=== PATIENT | male | born 1980 | race Two or more races ===

== ENCOUNTER 2017-10-14 12:36 | Emergency (ER) | payer MEDICAID | END 2017-10-14 13:05 | disposition left against medical advice (07) | LOC: ER 12:36 | DX: F41.9 Anxiety disorder, unspecified (principal); Z53.21 Procedure and treatment not carried out due to patient leaving prior to being seen by health care provider ==

== ENCOUNTER 2018-10-22 20:53 | Emergency (ER) | payer MEDICAID | END 2018-10-22 21:30 | disposition left against medical advice (07) | LOC: ER 20:53 | DX: S61.012A Laceration without foreign body of left thumb without damage to nail, initial encounter (principal); Z53.21 Procedure and treatment not carried out due to patient leaving prior to being seen by health care provider; X58.XXXA Exposure to other specified factors, initial encounter; Y93.89 Activity, other specified; Y92.89 Other specified places as the place of occurrence of the external cause; Y99.8 Other external cause status | CPT/HCPCS: Z7502 ==